=== PATIENT | male | born 1955 | race Caucasian/White ===

== ENCOUNTER 2020-10-15 08:00 | Outpatient (CLI) | payer OTHER | END 2020-10-15 08:30 | disposition home or self-care (01) | LOC: PPH VACUNA 08:00 | DX: Z23 Encounter for immunization (principal) ==

== ENCOUNTER 2020-11-16 08:00 | Outpatient (CLI) | payer OTHER | END 2020-11-16 08:30 | disposition home or self-care (01) | LOC: PPH VACUNA 08:00 | DX: Z23 Encounter for immunization (principal) ==

== ENCOUNTER 2021-05-30 09:00 | Outpatient (CLI) | payer OTHER | END 2021-05-30 09:15 | disposition home or self-care (01) | LOC: PPH VACUNA 09:00 | PROVIDERS: ATTEND Emergency Medicine Pediatric Emergency Medicine | DX: Z23 Encounter for immunization (principal) ==

== ENCOUNTER 2021-12-13 14:49 | Outpatient (CLI) | payer OTHER | END 2021-12-13 15:15 | disposition home or self-care (01) | LOC: PPH VACUNA 14:49 | PROVIDERS: ATTEND Emergency Medicine Pediatric Emergency Medicine | DX: Z23 Encounter for immunization (principal) ==

== ENCOUNTER 2022-05-20 12:57 | Outpatient (CLI) | payer OTHER | END 2022-05-20 13:06 | disposition home or self-care (01) | LOC: RAD 12:57 | PROVIDERS: ATTEND Orthopaedic Surgery | DX: R07.9 Chest pain, unspecified (principal) ==

== ENCOUNTER 2022-05-28 09:17 | Outpatient (CLI) | payer OTHER | END 2022-05-28 09:27 | disposition home or self-care (01) | LOC: PPH VACUNA 09:17 | PROVIDERS: ATTEND Emergency Medicine Pediatric Emergency Medicine | DX: Z23 Encounter for immunization (principal) ==

== ENCOUNTER 2022-08-07 15:50 | Outpatient (CLI) | payer OTHER | END 2022-08-07 15:59 | disposition home or self-care (01) | LOC: RAD 15:50 | PROVIDERS: ATTEND Physical Medicine & Rehabilitation | DX: M54.9 Dorsalgia, unspecified (principal) ==

== ENCOUNTER 2022-11-26 13:53 | Outpatient (CLI) | payer OTHER | END 2022-11-26 13:54 | disposition home or self-care (01) | LOC: NUCLEAR 13:53 | DX: Z13.820 Encounter for screening for osteoporosis (principal) ==

== ENCOUNTER 2024-11-18 07:19 | Outpatient (CLI) | payer OTHER | END 2024-11-18 07:31 | disposition home or self-care (01) | LOC: MRI 07:19 | PROVIDERS: ATTEND Internal Medicine Gastroenterology | DX: R74.8 Abnormal levels of other serum enzymes (principal); R17 Unspecified jaundice | CPT/HCPCS: 74181 ==

== ENCOUNTER 2024-11-29 09:08 | Outpatient (CLI) | payer OTHER | END 2024-11-29 09:10 | disposition home or self-care (01) | LOC: NUCLEAR 09:08 | PROVIDERS: ATTEND Specialist | DX: M81.0 Age-related osteoporosis without current pathological fracture (principal) ==